=== PATIENT | female | born 1950 | race Asian ===

== ENCOUNTER → 2018-06-12 | Outpatient (CLI) | payer MEDICARE ==
[~2018-06-12] MED LIST: ACET325T51 PO; AMOX500T2 PO; ATEN50TA PO; CAND8TAB10 PO; CHOL1CRY2 MC; HYDR1POW19 MC; LEVO150T11 PO; LEVO750T46 PO; OMEP1CAP25 PO; POTA20TA82 PO; SPIR50TA5 PO
== END | disposition home or self-care (01) ==
LOC: RAH 14:46
PROVIDERS: ATTEND Orthopaedic Surgery
DX: M25.461 Effusion, right knee (principal); M17.11 Unilateral primary osteoarthritis, right knee
CPT/HCPCS: 73562

== ENCOUNTER → 2019-05-23 | Outpatient (CLI) | payer MEDICARE | END | disposition home or self-care (01) | LOC: SHCH 13:39 | PROVIDERS: ATTEND Internal Medicine Cardiovascular Disease | DX: I71.4 Abdominal aortic aneurysm, without rupture (principal); R94.31 Abnormal electrocardiogram [ECG] [EKG] | CPT/HCPCS: 93306 ==

== ENCOUNTER → 2019-06-18 | Outpatient (CLI) | payer MEDICARE | END | disposition home or self-care (01) | LOC: SHCH 09:04 | PROVIDERS: ATTEND Internal Medicine Cardiovascular Disease | DX: I70.0 Atherosclerosis of aorta (principal); I71.4 Abdominal aortic aneurysm, without rupture | CPT/HCPCS: 93978 ==

== ENCOUNTER → 2020-04-13 | Outpatient (CLI) | payer MEDICARE | END | disposition home or self-care (01) | LOC: OIH 08:10 | PROVIDERS: ATTEND Internal Medicine Critical Care Medicine | DX: Z01.818 Encounter for other preprocedural examination (principal); R10.31 Right lower quadrant pain; Z98.890 Other specified postprocedural states | CPT/HCPCS: 73502 ==

== ENCOUNTER 2020-05-26 11:44 | Emergency (ER) | payer MEDICARE ==
[2020-05-26 12:36] LABS: EOSINOPHILS % (AUTO) 1.5 % (0.0-8.0); HEMATOCRIT 35.2 % (36-48); LYMPHOCYTES % (AUTO) 28.6 % (21.0-51.0); MEAN CORPUSCULAR HEMOGLOBIN 27.4 pg (27.0-33.0); MEAN CORPUSCULAR HGB CONC 30.7 g/dL (32.0-36.0); MEAN CORPUSCULAR VOLUME 89.3 fL (79-99); MONOCYTES % (AUTO) 7.9 % (3.0-13.0); PLATELET COUNT (AUTO) 224 K/uL (130-400); RED BLOOD CELL COUNT(AUTO) 3.94 MIL/uL (4.00-5.50); RED CELL DISTRIBUTION WIDTH 15.2 % (11.0-15.5); WHITE BLOOD COUNT (AUTO) 3.9 K/uL (4.8-10.8)
[2020-05-26] MEDS ORDERED: CEFTRIAXONE SODIUM 1 GM ONE (12:45)
[2020-05-26] MEDS ORDERED: ACETAMINOPHEN-CODEINE 300/30MG TAB ONE (12:46)
[2020-05-26] MEDS ORDERED: AZITHROMYCIN 250 MG TABLET PO ONE (12:46)
[2020-05-26] MEDS ORDERED: SODIUM CHLORIDE 0.9% 50 ML IV ONE (12:47)
[2020-05-26 12:52] LABS: CREATININE 0.7 mg/dL (0.5-1.5); POTASSIUM 4.1 mmol/L (3.5-5.1)
[2020-05-26 12:56] LABS: ALBUMIN 2.9 g/dL (3.5-5.0); BILIRUBIN,TOTAL 0.3 mg/dL (0.2-1.0); TOTAL PROTEIN, SERUM 6.1 g/dL (6.0-8.3)
== END 2020-05-26 14:29 | disposition home or self-care (01) ==
LOC: EDH 11:44
DX: U07.1 COVID-19 (principal); J18.1 Lobar pneumonia, unspecified organism; E11.9 Type 2 diabetes mellitus without complications; I10 Essential (primary) hypertension; Z72.0 Tobacco use
CPT/HCPCS: 36415; 71045; 80053; 85025; 87426; 87804 ×2; 93005; 96365; 99285; J0696

== ENCOUNTER 2020-08-05 15:01 | Inpatient (IN) | payer MEDICARE ==
[~2020-08-05] VITALS: Ht 160 cm; Wt 50.0 kg
[~2020-08-05 15:01] MED LIST changes: -CHOL1CRY2 MC; +CHOL1CRY2 PO; +POTA-202 PO; -POTA20TA82 PO
[2020-08-05] MEDS ORDERED: ACETAMINOPHEN 325 MG TAB PO PRN ×2 (16:30)
[2020-08-05] MEDS ORDERED: MORPHINE 2 MG SYG IV PRN (16:30)
[2020-08-05] MEDS ORDERED: ONDANSETRON 4MG INJ IV PRN (16:30)
[2020-08-05] MEDS ORDERED: LACTULOSE 20 GM/30 ML UDCUP PO PRN (16:30)
[2020-08-05] MEDS: 0.9%NACL 1000ML 1,000 ML IV SCH (16:30)
[2020-08-05] MEDS ORDERED: ONDANSETRON 4MG INJ ONE (16:44)
[2020-08-05] MEDS ORDERED: MORPHINE 2 MG SYG ONE (16:44)
[2020-08-05 17:02] LABS: BASOPHILS % (AUTO) 0.3 % (0.0-5.0); EOSINOPHILS % (AUTO) 0.2 % (0.0-8.0); HEMATOCRIT 37.8 % (36-48); LYMPHOCYTES % (AUTO) 7.4 % (21.0-51.0); MEAN CORPUSCULAR HEMOGLOBIN 27.9 pg (27.0-33.0); MONOCYTES % (AUTO) 8.6 % (3.0-13.0); NEUTROPHILS % (AUTO) 82.9 % (40.0-77.0); PLATELET COUNT (AUTO) 250 K/uL (130-400); RED CELL DISTRIBUTION WIDTH 16.2 % (11.0-15.5); WHITE BLOOD COUNT (AUTO) 8.8 K/uL (4.8-10.8)
[2020-08-05 17:18] LABS: INR 1.01 (0.85-1.15)
[2020-08-05 17:30] LABS: CREATININE 0.9 mg/dL (0.5-1.5)
[2020-08-05 17:35] LABS: ALBUMIN 3.4 g/dL (3.5-5.0); BILIRUBIN,TOTAL 0.5 mg/dL (0.2-1.0); TOTAL PROTEIN, SERUM 6.4 g/dL (6.0-8.3)
[2020-08-05] MEDS ORDERED: MORPHINE 4 MG SYG ONE (20:28)
[2020-08-05 20:51] LABS: APPEARANCE,URINE Clear (CLEAR); BILIRUBIN,URINE Negative (NEGATIVE); COLOR,URINE Yellow (YELLOW); GLUCOSE, URINE (UA) Negative (NEGATIVE); KETONES,URINE Negative (NEGATIVE); LEUKOCYTE ESTERASE ,URINE Negative (NEGATIVE); NITRATE,URINE Negative (NEGATIVE); OCCULT BLOOD,URINE Trace (NEGATIVE); PROTEIN,URINE Negative (NEGATIVE); UROBILINOGEN,URINE 0.2 mg/dL (0.2-1.0)
[2020-08-05] MEDS: METOPROLOL TARTRATE 25 MG TAB PO SCH (21:00)
[2020-08-05] MEDS: FAMOTIDINE 20MG VIAL IV SCH (21:00)
[2020-08-05 21:08] LABS: BACTERIA,URINE None Seen /HPF (None Seen); SQUAMOUS EPITHELIAL CELL,UR Rare /HPF (0-2); WBC,URINE None Seen /HPF (0-1)
[2020-08-05] MEDS ORDERED: METOPROLOL TARTRATE 25 MG TAB ONE (21:29)
[2020-08-05] MEDS ORDERED: FAMOTIDINE 20MG VIAL IV ONE (21:30)
[2020-08-05 23:10] VITALS: BP 138/55
[2020-08-06] VITALS (25 sets, daily range): BP systolic 112–162; BP diastolic 54–82
[2020-08-06] MEDS: MORPHINE 4 MG SYG IV PRN ×2 (02:50→09:16)
[2020-08-06] MEDS: 0.9%NACL 1000ML 1,000 ML IV SCH ×4 (06:15→22:41)
[2020-08-06] MEDS: FAMOTIDINE 20MG VIAL IV SCH ×2 (09:21→20:15)
[2020-08-06] MEDS: METOPROLOL TARTRATE 25 MG TAB PO SCH ×2 (09:21→20:16)
[2020-08-06] MEDS ORDERED: CEFAZOLIN SODIUM 1 GM VIAL ONE (11:42)
[2020-08-06] MEDS ORDERED: LIDOCAINE HCL-MPF 1% 5ML AMP IJ ONE (11:49)
[2020-08-06] MEDS ORDERED: MIDAZOLAM HCL 1 MG/ML 2ML VIAL ONE (11:50)
[2020-08-06] MEDS ORDERED: PROPOFOL 10 MG/ML 20ML VIAL IV ONE (11:50)
[2020-08-06] MEDS ORDERED: FENTANYL CITRATE PF 50 MCG/1 ML 2ML VIAL ONE (11:50)
[2020-08-06] MEDS ORDERED: ROCURONIUM 10MG/1ML SYR 10 MG/ML ML ONE (11:50)
[2020-08-06] MEDS ORDERED: EPHEDRINE SULFATE 50 MG/ML AMPULE ONE (12:13)
[2020-08-06] MEDS ORDERED: ROPIVACAINE 0.5% 5MG/ML 30ML IJ ONE (13:14)
[2020-08-06] MEDS ORDERED: HYDROCODONE/ACETAMINOPHEN 5/325 MG TAB PO PRN (13:30)
[2020-08-06] MEDS ORDERED: FERROUS FUMARATE 324 MG TABLET PO PRN (13:30)
[2020-08-06] MEDS ORDERED: DIPHENHYDRAMINE HCL 25 MG CAPSULE PO PRN (13:30)
[2020-08-06] MEDS: ACETAMINOPHEN 500 MG TABLET PO SCH ×2 (13:30→21:30)
[2020-08-06] MEDS ORDERED: POTASSIUM CHLORIDE 20MEQ/100ML 100 ML IV PRN (13:30)
[2020-08-06] MEDS ORDERED: KCL 20 MEQ ERTAB PO PRN (13:30)
[2020-08-06] MEDS ORDERED: CALCIUM CARB 500MG PO PRN (13:30)
[2020-08-06] MEDS ORDERED: POTASSIUM CHLORIDE 10% ELIXIR 20 MEQ/15 ML UDCUP PO PRN (13:30)
[2020-08-06] MEDS ORDERED: DiphenhydrAMINE HCL 50 MG/ML VIAL IVP PRN (13:30)
[2020-08-06] MEDS: CEFAZOLIN SODIUM 1 GM VIAL IVP SCH (20:15)
[2020-08-07] VITALS: BP 128/65
[2020-08-07] MEDS: CEFAZOLIN SODIUM 1 GM VIAL IVP SCH (03:53)
[2020-08-07] MEDS: 0.9%NACL 1000ML 1,000 ML IV SCH ×3 (03:54→11:24)
[2020-08-07 04:00] VITALS: BP 142/79
[2020-08-07] MEDS: ACETAMINOPHEN 500 MG TABLET PO SCH ×2 (04:58→15:41)
[2020-08-07 05:10] LABS: HEMATOCRIT 29.8 % (36-48); MEAN CORPUSCULAR HEMOGLOBIN 28.6 pg (27.0-33.0); MEAN CORPUSCULAR HGB CONC 32.2 g/dL (32.0-36.0); MEAN CORPUSCULAR VOLUME 88.7 fL (79-99); RED BLOOD CELL COUNT(AUTO) 3.36 MIL/uL (4.00-5.50); RED CELL DISTRIBUTION WIDTH 15.7 % (11.0-15.5); WHITE BLOOD COUNT (AUTO) 9.2 K/uL (4.8-10.8)
[2020-08-07 05:30] LABS: CREATININE 0.6 mg/dL (0.5-1.5); POTASSIUM 3.3 mmol/L (3.5-5.1)
[2020-08-07] MEDS ORDERED: KCL 20 MEQ ERTAB PO SCH (07:30)
[2020-08-07 08:00] VITALS: BP 135/73
[2020-08-07] MEDS ORDERED: LOSARTAN 50 MG TABLET PO SCH (09:00)
[2020-08-07] MEDS ORDERED: OMEPRAZOLE PO SCH (09:00)
[2020-08-07] MEDS ORDERED: VIT D3 PO SCH (09:00)
[2020-08-07] MEDS ORDERED: NON-FORMULARY MEDICATION 1 EACH (Spironolactone 50 MG) PO SCH (09:00)
[2020-08-07] MEDS ORDERED: LEVOTHYROXINE 150 MCG TABLET PO SCH (09:00)
[2020-08-07] MEDS ORDERED: APIXABAN 2.5 MG TABLET PO SCH (09:00)
[2020-08-07] MEDS ORDERED: POLYETHYLENE GLYCOL 3350 17 GM POWD.PACK PO SCH (09:00)
[2020-08-07] MEDS ORDERED: SODIUM BICARBONATE PO SCH (09:00)
[2020-08-07] MEDS: FAMOTIDINE 20MG VIAL IV SCH (09:03)
[2020-08-07] MEDS: METOPROLOL TARTRATE 25 MG TAB PO SCH (09:03)
[2020-08-07 11:00] VITALS: BP 126/76
[2020-08-07] MEDS ORDERED: PSYLLIUM SEED 1 EACH PACKET PO SCH (12:00)
[2020-08-07] MEDS ORDERED: SPIRONOLACTONE 25 MG TAB PO SCH (21:00)
[2020-08-08] MEDS ORDERED: BISACODYL 5 MG TABLET.DR PO PRN (13:30)
[2020-08-09] MEDS ORDERED: BISACODYL 10 MG SUPP.RECT RC PRN (13:30)
[2020-08-10] MEDS ORDERED: ROCURONIUM 10MG/1ML SYR 10 MG/ML ML ONE (15:09)
== END 2020-08-07 16:50 | disposition home or self-care (01) | DRG 522 ==
LOC: EDH 15:01 → EDHIP 16:16 → 3BH 23:04
PROVIDERS: ADMIT Internal Medicine; ATTEND Internal Medicine
PROC: 0SRS0JA Replacement of Left Hip Joint, Femoral Surface with Synthetic Substitute, Uncemented, Open Approach (ICD-10-PCS; principal; 2020-08-06 11:55)
DX: S72.012A Unspecified intracapsular fracture of left femur, initial encounter for closed fracture (principal); Q61.3 Polycystic kidney, unspecified; I10 Essential (primary) hypertension; W01.0XXA Fall on same level from slipping, tripping and stumbling without subsequent striking against object, initial encounter; E78.5 Hyperlipidemia, unspecified; E89.0 Postprocedural hypothyroidism; K57.90 Diverticulosis of intestine, part unspecified, without perforation or abscess without bleeding; Z20.822 Contact with and (suspected) exposure to COVID-19; K76.89 Other specified diseases of liver; Y92.002 Bathroom of unspecified non-institutional (private) residence as the place of occurrence of the external cause; Y93.89 Activity, other specified; Y99.8 Other external cause status; Z80.8 Family history of malignant neoplasm of other organs or systems; Z82.49 Family history of ischemic heart disease and other diseases of the circulatory system; Z79.899 Other long term (current) drug therapy; Z88.8 Allergy status to other drugs, medicaments and biological substances
CPT/HCPCS: 36415; 71045; 73502; 73503; 80048; 80053; 81001; 82550; 84484; 85025; 85027; 85610; 85730; 86850; 86900; 86901; 87426; 88305; 88311; 93005; 97039; C1776; G0378; J0690; J2250; J2270; J2405; J2704; J2795; J3010; J3490; J7030; U0003

== ENCOUNTER 2021-06-12 12:04 | Emergency (ER) | payer MEDICARE ==
[~2021-06-12] VITALS: Ht 167.6 cm; Wt 54.9 kg
[~2021-06-12 12:04] MED LIST changes: -ACET325T51 PO; -AMOX500T2 PO; -HYDR1POW19 MC
[2021-06-12 12:06] VITALS: BP 129/68
[2021-06-12] MEDS ORDERED: ACETAMINOPHEN 500 MG TABLET PO SCH (12:30)
[2021-06-12 12:33] LABS: BASOPHILS % (AUTO) 0.6 % (0.0-5.0); EOSINOPHILS % (AUTO) 2.2 % (0.0-8.0); HEMATOCRIT 45.9 % (36-48); LYMPHOCYTES % (AUTO) 27.2 % (21.0-51.0); MEAN CORPUSCULAR HEMOGLOBIN 29.5 pg (27.0-33.0); MEAN CORPUSCULAR HGB CONC 30.7 g/dL (32.0-36.0); MONOCYTES % (AUTO) 8.6 % (3.0-13.0); NEUTROPHILS % (AUTO) 60.9 % (40.0-77.0); PLATELET COUNT (AUTO) 323 K/uL (130-400); RED BLOOD CELL COUNT(AUTO) 4.78 MIL/uL (4.00-5.50); RED CELL DISTRIBUTION WIDTH 13.5 % (11.0-15.5); WHITE BLOOD COUNT (AUTO) 6.3 K/uL (4.8-10.8)
[2021-06-12 12:41] LABS: CREATININE 0.8 mg/dL (0.5-1.5); POTASSIUM 4.3 mmol/L (3.5-5.1)
[2021-06-12 12:46] LABS: ALBUMIN 3.9 g/dL (3.5-5.0); BILIRUBIN,TOTAL 0.3 mg/dL (0.2-1.0); TOTAL PROTEIN, SERUM 7.4 g/dL (6.0-8.3)
[2021-06-12 13:28] LABS: APPEARANCE,URINE Clear (CLEAR); BILIRUBIN,URINE Negative (NEGATIVE); COLOR,URINE Yellow (YELLOW); GLUCOSE, URINE (UA) Negative (NEGATIVE); KETONES,URINE Negative (NEGATIVE); LEUKOCYTE ESTERASE ,URINE Moderate (NEGATIVE); NITRATE,URINE Negative (NEGATIVE); OCCULT BLOOD,URINE Moderate (NEGATIVE); PH,URINE 5.5 (5.0-8.0); PROTEIN,URINE Trace mg/dL (NEGATIVE); UROBILINOGEN,URINE 0.2 mg/dL (0.2-1.0)
[2021-06-12 13:44] LABS: BACTERIA,URINE Rare /HPF (None Seen); MUCUS,URINE Rare LPF (None Seen); SQUAMOUS EPITHELIAL CELL,UR Rare /HPF (0-2)
[2021-06-12] MEDS ORDERED: PHEN-847 PO (13:51)
[2021-06-12] MEDS ORDERED: CEPH500B PO (13:51)
[2021-06-12] MEDS ORDERED: CEFTRIAXONE 1G VIAL IM ONE (14:00)
[2021-06-12] MEDS ORDERED: LIDOCAINE HCL-MPF 1% 2ML VIAL ONE (14:11)
== END 2021-06-12 14:17 | disposition home or self-care (01) ==
LOC: EDH 12:04
DX: S00.83XA Contusion of other part of head, initial encounter (principal); S70.01XA Contusion of right hip, initial encounter; S20.211A Contusion of right front wall of thorax, initial encounter; N39.0 Urinary tract infection, site not specified; I10 Essential (primary) hypertension; J44.9 Chronic obstructive pulmonary disease, unspecified; Z79.899 Other long term (current) drug therapy; Z90.49 Acquired absence of other specified parts of digestive tract; W01.0XXA Fall on same level from slipping, tripping and stumbling without subsequent striking against object, initial encounter; Y93.89 Activity, other specified; Y92.000 Kitchen of unspecified non-institutional (private) residence as the place of occurrence of the external cause; Y99.8 Other external cause status
CPT/HCPCS: 36415; 70450; 71250; 72125; 74176; 80053; 81001; 84484; 85025; 86140; 87088; 93005; 96372; 99285; J0696; J3490

== ENCOUNTER 2021-07-08 12:57 | Emergency (ER) | payer MEDICARE ==
[~2021-07-08] VITALS: Ht 170.2 cm; Wt 54.9 kg
[~2021-07-08 12:57] MED LIST changes: +CEPH500B PO; +PHEN-847 PO
[2021-07-08] MEDS ORDERED: ACETAMINOPHEN 500 MG TABLET PO ONE (13:30)
[2021-07-08] MEDS ORDERED: NAPR-1196 PO (14:05)
[2021-07-08 14:06] VITALS: BP 141/76
== END 2021-07-08 14:30 | disposition home or self-care (01) ==
LOC: EDH 12:57
DX: S42.214A Unspecified nondisplaced fracture of surgical neck of right humerus, initial encounter for closed fracture (principal); I10 Essential (primary) hypertension; Z79.899 Other long term (current) drug therapy; Z90.49 Acquired absence of other specified parts of digestive tract; W18.39XA Other fall on same level, initial encounter; Y93.89 Activity, other specified; Y92.89 Other specified places as the place of occurrence of the external cause; Y99.8 Other external cause status
CPT/HCPCS: 29105; 70450; 72125; 73030

== ENCOUNTER 2022-06-01 09:45 | Emergency (ER) | payer MEDICARE ==
[~2022-06-01] VITALS: Ht 170.2 cm; Wt 45.4 kg
[~2022-06-01 09:45] MED LIST changes: +LEVO750T39 PO; -LEVO750T46 PO; +NAPR-1196 PO
[2022-06-01] MEDS ORDERED: LACTATED RINGERS 1000ML 1,000 ML IV ONE (10:00)
[2022-06-01] MEDS ORDERED: ONDANSETRON 4MG INJ IVP ONE (10:00)
[2022-06-01 10:16] LABS: BASOPHILS % (AUTO) 0.4 % (0.0-5.0); EOSINOPHILS % (AUTO) 0.9 % (0.0-8.0); HEMATOCRIT 35.8 % (36-48); LYMPHOCYTES % (AUTO) 11.7 % (21.0-51.0); MEAN CORPUSCULAR HEMOGLOBIN 30.2 pg (27.0-33.0); MEAN CORPUSCULAR HGB CONC 32.7 g/dL (32.0-36.0); MEAN CORPUSCULAR VOLUME 92.5 fL (79-99); MONOCYTES % (AUTO) 15.1 % (3.0-13.0); NEUTROPHILS % (AUTO) 71.5 % (40.0-77.0); PLATELET COUNT (AUTO) 203 K/uL (130-400); RED BLOOD CELL COUNT(AUTO) 3.87 MIL/uL (4.00-5.50); RED CELL DISTRIBUTION WIDTH 13.5 % (11.0-15.5); WHITE BLOOD COUNT (AUTO) 5.3 K/uL (4.8-10.8)
[2022-06-01 10:28] LABS: CREATININE 1.3 mg/dL (0.5-1.5)
[2022-06-01 10:32] LABS: ALBUMIN 3.6 g/dL (3.5-5.0); TOTAL PROTEIN, SERUM 6.6 g/dL (6.0-8.3)
[2022-06-01 12:38] LABS: APPEARANCE,URINE CLEAR (CLEAR); BILIRUBIN,URINE NEGATIVE (NEGATIVE); COLOR,URINE YELLOW (YELLOW); GLUCOSE, URINE (UA) NEGATIVE (NEGATIVE); KETONES,URINE 5 mg/dL (NEGATIVE); LEUKOCYTE ESTERASE ,URINE 25 Leu/uL (NEGATIVE); NITRATE,URINE 2+ (NEGATIVE); OCCULT BLOOD,URINE NEGATIVE (NEGATIVE); PH,URINE 5.5 (5.0-8.0); PROTEIN,URINE 10 mg/dL (NEGATIVE); UROBILINOGEN,URINE 0.2 mg/dL (0.2-1.0)
[2022-06-01 12:50] LABS: BACTERIA,URINE MANY /HPF (None Seen); HYALINE CASTS, URINE 26-50 /LPF (0-1 /LPF); MUCUS,URINE MANY LPF (None Seen); RBC,URINE 0-1 /HPF (0-1)
[2022-06-01] MEDS ORDERED: SULF1TAB42 PO (13:22)
[2022-06-01] MEDS ORDERED: ONDA4TAB10 PO (13:22)
[2022-06-01] MEDS ORDERED: LOPE2CAP PO (13:22)
[2022-06-01] MEDS ORDERED: CEFTRIAXONE 1G VIAL IVP ONE (13:30)
[2022-06-01 14:00] VITALS: BP 135/76
== END 2022-06-01 14:00 | disposition home or self-care (01) ==
LOC: EDH 09:45
DX: N39.0 Urinary tract infection, site not specified (principal); E86.0 Dehydration; R19.7 Diarrhea, unspecified; I10 Essential (primary) hypertension; Z20.822 Contact with and (suspected) exposure to COVID-19; Z98.890 Other specified postprocedural states; Z79.899 Other long term (current) drug therapy; Z90.49 Acquired absence of other specified parts of digestive tract
CPT/HCPCS: 99284; 84484; 80053; 83690; 85025; 87077; 87088; 87186; 81001; 36415; 87635; 96374; 96361; 96375; C9803; J7120; J0696; J2405

== ENCOUNTER 2022-08-04 06:29 | Emergency (ER) | payer MEDICARE ==
[~2022-08-04] VITALS: Ht 170.2 cm; Wt 46.3 kg
[~2022-08-04 06:29] MED LIST changes: -ATEN50TA PO; -CAND8TAB10 PO; +CELE-84 PO; -CEPH500B PO; -CHOL1CRY2 PO; +CHOL500045 PO; +FERR-72 PO; +HYOS-28 PO; -LEVO750T39 PO; -NAPR-1196 PO; -OMEP1CAP25 PO; -PHEN-847 PO; +SPIR25TA PO; -SPIR50TA5 PO; +TRAZ-185 PO
[2022-08-04] MEDS ORDERED: TRAM50TA4 PO (09:09)
[2022-08-04 09:13] VITALS: BP 140/71
== END 2022-08-04 09:27 | disposition home or self-care (01) ==
LOC: EDH 06:29
DX: M25.511 Pain in right shoulder (principal); M25.562 Pain in left knee; M25.552 Pain in left hip; E03.9 Hypothyroidism, unspecified; I10 Essential (primary) hypertension; Z85.528 Personal history of other malignant neoplasm of kidney; Z79.899 Other long term (current) drug therapy; Z96.643 Presence of artificial hip joint, bilateral; Z98.890 Other specified postprocedural states; Z88.8 Allergy status to other drugs, medicaments and biological substances; W18.39XA Other fall on same level, initial encounter; Y93.89 Activity, other specified; Y92.89 Other specified places as the place of occurrence of the external cause; Y99.8 Other external cause status
CPT/HCPCS: 73030; 73502; 73562

== ENCOUNTER 2023-04-12 10:51 | Emergency (ER) | payer MEDICARE ==
[~2023-04-12] VITALS: Ht 170.2 cm; Wt 47.2 kg
[~2023-04-12 10:51] MED LIST changes: +CELE-125 PO; -CELE-84 PO; +TRAM50TA4 PO
[2023-04-12 10:56] VITALS: BP 143/60; PULSE 18; RESP 18
[2023-04-12] MEDS ORDERED: ACETAMINOPHEN WITH CODEINE 1 TAB TAB PO ONE (13:00)
[2023-04-12] MEDS ORDERED: ACET-2893 PO (14:54)
[2023-04-17] MEDS ORDERED: CEFTRIAXONE 1G VIAL IVPB SCH (17:30)
[2023-04-17] MEDS ORDERED: 0.9%NACL 1000ML 1,000 ML IV ONE (17:30)
== END 2023-04-12 15:39 | disposition home or self-care (01) ==
LOC: EDH 10:51
DX: S46.911A Strain of unspecified muscle, fascia and tendon at shoulder and upper arm level, right arm, initial encounter (principal); E03.9 Hypothyroidism, unspecified; I10 Essential (primary) hypertension; Z79.890 Hormone replacement therapy; Z79.899 Other long term (current) drug therapy; Z85.528 Personal history of other malignant neoplasm of kidney; W01.0XXA Fall on same level from slipping, tripping and stumbling without subsequent striking against object, initial encounter; Y93.89 Activity, other specified; Y92.89 Other specified places as the place of occurrence of the external cause; Y99.8 Other external cause status
CPT/HCPCS: 73030; 73562; 73630

== ENCOUNTER 2023-06-04 10:08 | Emergency (ER) | payer MEDICARE ==
[~2023-06-04] VITALS: Ht 167.6 cm; Wt 54.4 kg
[~2023-06-04 10:08] MED LIST changes: +ACET-2893 PO; +AMLO-257 PO
[2023-06-04] MEDS ORDERED: FAMOTIDINE 20MG VIAL IV ONE (11:00)
[2023-06-04] MEDS ORDERED: 0.9%NACL 1000ML 1,000 ML IV ONE (11:00)
[2023-06-04] MEDS ORDERED: ONDANSETRON 4MG INJ IVP ONE ×2 (11:00→15:00)
[2023-06-04 11:04] LABS: BASOPHILS # (AUTO) 0.02 K/uL (0.00-0.20); BASOPHILS % (AUTO) 0.3 % (0.0-5.0); EOSINOPHILS # (AUTO) 0.13 K/uL (0.00-0.70); EOSINOPHILS % (AUTO) 1.6 % (0.0-8.0); HEMATOCRIT 38.4 % (36-48); IMMATURE GRANULOCYTE ABSOLUTE 0.02 K/uL (0-1); LYMPHOCYTES # (AUTO) 0.4 K/uL (1.0-4.8); LYMPHOCYTES % (AUTO) 4.6 % (21.0-51.0); MEAN CORPUSCULAR HEMOGLOBIN 29.7 pg (27.0-33.0); MEAN CORPUSCULAR VOLUME 92.8 fL (79-99); MONOCYTES # (AUTO) 0.8 K/uL (0.1-1.0); MONOCYTES % (AUTO) 9.4 % (3.0-13.0); NEUTROPHILS # (AUTO) 6.7 K/uL (1.8-7.7); NEUTROPHILS % (AUTO) 83.8 % (40.0-77.0); PLATELET COUNT (AUTO) 217 K/uL (130-400); RED BLOOD CELL COUNT(AUTO) 4.14 MIL/uL (4.00-5.50)
[2023-06-04 11:13] LABS: CREATININE 0.8 mg/dL (0.5-1.5); POTASSIUM 3.2 mmol/L (3.5-5.1)
[2023-06-04 11:16] LABS: ALBUMIN 3.1 g/dL (3.5-5.0); BILIRUBIN,TOTAL 0.5 mg/dL (0.2-1.0); MAGNESIUM 1.1 mg/dL (1.80-2.40); TOTAL PROTEIN, SERUM 6.1 g/dL (6.0-8.3)
[2023-06-04 12:36] LABS: APPEARANCE,URINE CLEAR (CLEAR); BILIRUBIN,URINE NEGATIVE (NEGATIVE); COLOR,URINE LIGHT-YELLOW (YELLOW); GLUCOSE, URINE (UA) NEGATIVE (NEGATIVE); KETONES,URINE NEGATIVE (NEGATIVE); LEUKOCYTE ESTERASE ,URINE NEGATIVE Leu/uL (NEGATIVE); NITRATE,URINE NEGATIVE (NEGATIVE); OCCULT BLOOD,URINE SMALL (NEGATIVE); PROTEIN,URINE NEGATIVE (NEGATIVE); UROBILINOGEN,URINE 0.2 mg/dL (0.2-1.0)
[2023-06-04 12:44] LABS: ADD UA MICROSCOPIC NO
[2023-06-04] MEDS ORDERED: POTASSIUM BICARB/CIT AC 25 MEQ TABLET.EFF PO ONE (13:00)
[2023-06-04] MEDS ORDERED: ONDA4TAB10 PO (13:29)
[2023-06-04 14:44] VITALS: BP 158/77; PULSE 71; RESP 17; O2SAT 96
== END 2023-06-04 15:03 | disposition home or self-care (01) ==
LOC: EDH 10:08
DX: K52.9 Noninfective gastroenteritis and colitis, unspecified (principal); Z90.49 Acquired absence of other specified parts of digestive tract; Z79.899 Other long term (current) drug therapy; Z98.890 Other specified postprocedural states; Z88.8 Allergy status to other drugs, medicaments and biological substances
CPT/HCPCS: 99285; 96374; 71045; 96361; 96375; 82150; 83735; 84484; 80053; 83690; 85025; 81003; 36415; 96376; 93005; J3490; J7030; J2405 ×2

== ENCOUNTER 2023-07-05 15:25 | Emergency (ER) | payer MEDICARE ==
[~2023-07-05] VITALS: Ht 170.2 cm; Wt 47.2 kg
[~2023-07-05 15:25] MED LIST changes: -ACET-2893 PO; -CELE-125 PO; +LEVO-70 PO; +MAGN400T53 PO; +ONDA4TAB10 PO; -SPIR25TA PO; -TRAM50TA4 PO
[2023-07-05 19:23] LABS: BASOPHILS # (AUTO) 0.04 K/uL (0.00-0.20); BASOPHILS % (AUTO) 0.4 % (0.0-5.0); EOSINOPHILS # (AUTO) 0.13 K/uL (0.00-0.70); EOSINOPHILS % (AUTO) 1.2 % (0.0-8.0); HEMATOCRIT 39.4 % (36-48); IMMATURE GRANULOCYTE ABSOLUTE 0.04 K/uL (0-1); LYMPHOCYTES # (AUTO) 1.4 K/uL (1.0-4.8); LYMPHOCYTES % (AUTO) 13.4 % (21.0-51.0); MEAN CORPUSCULAR HGB CONC 33.2 g/dL (32.0-36.0); MEAN CORPUSCULAR VOLUME 90.4 fL (79-99); MONOCYTES # (AUTO) 0.9 K/uL (0.1-1.0); MONOCYTES % (AUTO) 8.2 % (3.0-13.0); NEUTROPHILS % (AUTO) 76.4 % (40.0-77.0); PLATELET COUNT (AUTO) 317 K/uL (130-400); RED BLOOD CELL COUNT(AUTO) 4.36 MIL/uL (4.00-5.50); RED CELL DISTRIBUTION WIDTH 14.3 % (11.0-15.5); WHITE BLOOD COUNT (AUTO) 10.4 K/uL (4.8-10.8)
[2023-07-05 19:30] LABS: POTASSIUM 3.9 mmol/L (3.5-5.1)
[2023-07-05 19:36] LABS: ALBUMIN 3.5 g/dL (3.5-5.0); BILIRUBIN,TOTAL 0.4 mg/dL (0.2-1.0); TOTAL PROTEIN, SERUM 6.7 g/dL (6.0-8.3)
[2023-07-05] MEDS: DEXAMETHASONE SOD PHOSPHATE 4 MG/ML 1ML VIAL IVP ONE (19:49)
[2023-07-05] MEDS: KETOROLAC 30MG VIAL (30MG/ML) IVP ONE (19:49)
[2023-07-05] MEDS: 0.9%NACL 1000ML 1,000 ML IV ONE (19:54)
[2023-07-05] MEDS: MAGNESIUM 2GM PREMIX 50ML 50 ML IV STA (20:32)
[2023-07-05 22:03] VITALS: BP 166/84; PULSE 69; RESP 17; O2SAT 98
== END 2023-07-05 22:05 | disposition home or self-care (01) ==
LOC: EDH 15:25
DX: E83.42 Hypomagnesemia (principal); E86.0 Dehydration; R63.0 Anorexia; I10 Essential (primary) hypertension; Z79.899 Other long term (current) drug therapy; Z98.890 Other specified postprocedural states; Z88.8 Allergy status to other drugs, medicaments and biological substances
CPT/HCPCS: 99284; 96365; 96375; 96361; 83735; 80053; 85025; 36415; J1100; J3475; J7030; J1885

== ENCOUNTER 2024-05-21 12:00 | Emergency (ER) | payer MEDICARE ==
[~2024-05-21] VITALS: Ht 170.2 cm; Wt 54.4 kg
[~2024-05-21 12:00] MED LIST changes: +ONDA-243 PO; -ONDA4TAB10 PO
--- NOTE | 2024-05-21 12:09 | ERN ---
ED Note History of Present Illness Stated Complaint: UTI Chief Complaint: Blood in Urine: Time Seen by MD: 12:03 Dictation: PATIENT IS A 73-YEAR-OLD FEMALE HERE WITH HER WITH COMPLAINTS OF HEMATURIA WITH LEFT FLANK PAIN ONSET OFF AND ON FOR THE LAST SEVERAL DAYS. NO FEVER NO CHILLS NO NAUSEA VOMITING. SHE STATES SHE HAS A HISTORY OF POLYCYSTIC KIDNEY DISEASE, AND HAS HAD RENAL SEE A X3. SHE CURRENTLY DOES NOT HAVE A NEPHROLOGISTS HOWEVER WOULD LIKE TO BE REFERRED TO ONE. Allergies: Coded Allergies: pregabalin (Unverified Allergy, Severe, 04/17/23) severe itching all over body atorvastatin (Verified Allergy, Unknown, 07/10/16) Home Meds Active Scripts Phenazopyridine HCl (Pyridium) 200 Mg Tab, 200 MG PO TIDPC for 3 Days, #9 TAB TAKE WITH FOOD TO PREVENT STOMACH UPSET. Prov:RUPERT FONSECA NP 05/21/24 Amoxicillin/Potassium Clav (Amox Tr-K Clv 875-125 mg Tab) 875 Mg-125 Mg Tablet, 1 EACH PO BID for 7 Days, #14 TAB 0 Refills Prov:RUPERT FONSECA NP 05/21/24 Diphenoxylate HCl/Atropine (Lomotil Tablet) 2.5 Mg-0.025 Mg Tablet, 1 TAB PO QID for 5 Days, #20 TAB 0 Refills Prov:RUPERT FONSECA NP 05/21/24 Potassium Chloride (Potassium Chloride) 20 Meq Tab.er.prt, 20 MEQ PO DAILY for 3 Days, #3 MEQ Prov:SHAMIKA HERNANDEZ NP 06/23/23 Magnesium Oxide (Magnesium Oxide) 400 Mg Tablet, 400 MG PO DAILY for 3 Days, #3 TAB Prov:SHAMIKA HERNANDEZ NP 06/23/23 Levofloxacin (Levofloxacin) 500 Mg Tablet, 500 MG PO DAILY for 5 Days, #5 TAB Prov:SHAMIKA HERNANDEZ NP 06/23/23 Ondansetron (Ondansetron Odt) 4 Mg Tab.rapdis, 4 MG PO Q4H PRN for NAUSEA, #20 TAB Prov:ROSS CLEANINGP 06/04/23 Amlodipine Besylate (Amlodipine Besylate) 5 Mg Tablet, 5 MG PO DAILY, #30 TAB 0 Refills Prov:ELISE MONTEIRO 04/19/23 Reported Medications Ferrous Sulfate (Ferrous Sulfate) 325 Mg Tablet, 325 MG PO DAILY, TAB 06/18/22 Hyoscyamine Sulfate (Hyoscyamine Sulfate) 0.125 Mg Tablet, 0.125 MG PO Q8H for DIARRHEA, TAB 06/18/22 Cholecalciferol (Vitamin D3) (Vitamin D3) 125 Mcg Tablet, 125 MCG PO DAILY, TAB 06/18/22 Trazodone HCl (Trazodone HCl) 50 Mg Tablet, 50 MG PO HS, TAB 06/18/22 Levothyroxine Sodium (Levothyroxine Sodium) 150 Mcg Tablet, 150 MCG PO DAILY, TAB 07/10/16 Past Medical History Past Medical History: Hypertension, Other Additional Past Medical Hx: GENETIC KIDNEY DISEASE Surgical History: Other Surgical History Other: SHOULDER REPLACEMENT, KNEE PSYCH History: no pertinent psych hx Family History: Negative Social History: Negative, Lives with family History: Not Applicable RN Note Reviewed/Agreed w/PFSH: Yes Review of System Dictation CONSTITUTIONAL: NEGATIVE EXCEPT FOR HPI HEAD/FACE: NEGATIVE EXCEPT FOR HPI EENT: NEGATIVE EXCEPT FOR HPI RESPIRATORY: NEGATIVE EXCEPT FOR HPI GASTROINTESTINAL/ABDOMINAL: NEGATIVE EXCEPT FOR HPI LEFT FLANK PAIN GENITOURINARY: NEGATIVE EXCEPT FOR HPI HEMATURIA MUSCULOSKELETAL: NEGATIVE EXCEPT FOR HPI INTEGUMENTARY: NEGATIVE EXCEPT FOR HPI NEUROLOGICAL/PSYCH: NEGATIVE EXCEPT FOR HPI HEMATOLOGIC/LYMPHATIC: NEGATIVE EXCEPT FOR HPI ALL SYSTEMS NEGATIVE, EXCEPT NOTED ABOVE. 13 POINT REVIEW OF SYSTEMS ASSESSED AND ALL NEGATIVE EXCEPT FOR ABOVE. Initial Vital Sign VS Vital Signs Date Time Temp Pulse Resp B/P (MAP) Pulse Ox O2 Delivery O2 Flow Rate FiO2 05/21/24 12:01 98.4 82 16 159/98 98 0 05/21/24 12:01 Room Air* 21 Physical Exam Dictation VITAL SIGNS REVIEWED GENERAL APPEARANCE: ALERT, ORIENTED X 3, MILD ACUTE DISTRESS, WELL DEVELOPED, NOURISHED. HEAD AND FACE: NON-TRAUMATIC. EYES: PERRL, PINK CONJUNCTIVAS, EYELID NO TRAUMA, ANTERIOR CHAMBER WITH ARCUS SENILIS. EARS: PINNAS INTACT AND NO SIGNS OF TRAUMA OR ERYTHEMA EAR CANALS CLEAR AND NO DISCHARGE TM NO ERYTHEMA NOSE: NO DISCHARGE, NO BLEEDING. OROPHARYNX: MOUTH NORMAL, TONGUE PINK, PHARYNX CLEAR,NO ERYTHEMA, TONSILS NO EXUDATES, NO ABSCESSES NOTED, MUCOUS MEMBRANE MOIST NECK: SUPPLE, NON-TENDER, NO THYROMEGALY, NO MASSES, NO JVD, NO BRUITS BREAST:DEFERRED CHEST:NO TENDERNESS, NO CREPITUS, NO PARADOXICAL MOVEMENT, NO RETRACTIONS LUNGS:CLEAR, WELL-VENTILATED, SYMMETRIC, NO RALES, NO WHEEZING, NO RHONCHI, NO STRIDOR, GOOD BREATH SOUNDS BILATERALLY HEART: REGULAR RATE, REGULAR RHYTHM, NO MURMUR, NO GALLOPS VASCULAR: NO PERIPHERAL EDEMA, ABDOMEN: SOFT, POSITIVE BOWEL SOUNDS, NONDISTENDED, NO GUARDING, NONTENDER, NO REBOUND, NO MASSES NO HEPATOMEGALY, NO SPLENOMEGALY, NO COLEMAN'S SIGN, NO HERNIAS. RECTAL: DEFERRED GENITAL: DEFERRED NEUROLOGICAL: NORMAL SPEECH, MOTOR FUNCTION INTACT, SENSORY FUNCTION INTACT MUSCULOSKELETAL: NECK NONTENDER, FULL RANGE OF MOTION, BACK NONTENDER, FULL RANGE OF MOTION, EXTREMITIES: NONTENDER, FULL RANGE OF MOTION SKIN: COLOR PINK, DRY, NO TURGOR, NO RASH, NO LACERATIONS, NO ABRASIONS, NO CONTUSIONS. LYMPHATIC: DEFERRED Results (Laboratory/Radiology) Laboratory/Radiology Laboratory Tests Test 05/21/24 12:35 05/21/24 12:42 White Blood Count 6.5 K/uL (4.8-10.8) Red Blood Count 4.38 MIL/uL (4.00-5.50) Hemoglobin 13.4 g/dL (12.0-16.0) Hematocrit 42.0 % (36-48) Mean Corpuscular Volume 95.9 fL (79-99) Mean Corpuscular Hemoglobin 30.6 pg (27.0-33.0) Mean Corpuscular Hemoglobin Concent 31.9 g/dL (32.0-36.0) L Red Cell Distribution Width 14.3 % (11.0-15.5) Platelet Count 322 K/uL (130-400) Mean Platelet Volume 9.2 fL (7.5-10.5) Immature Granulocyte % (Auto) 0.6 % (0-1) Neutrophils (%) (Auto) 56.7 % (40.0-77.0) Lymphocytes (%) (Auto) 32.3 % (21.0-51.0) Monocytes (%) (Auto) 8.4 % (3.0-13.0) Eosinophils (%) (Auto) 1.4 % (0.0-8.0) Basophils (%) (Auto) 0.6 % (0.0-5.0) Neutrophils # (Auto) 3.7 K/uL (1.8-7.7) Lymphocytes # (Auto) 2.1 K/uL (1.0-4.8) Monocytes # (Auto) 0.6 K/uL (0.1-1.0) Eosinophils # (Auto) 0.09 K/uL (0.00-0.70) Basophils # (Auto) 0.04 K/uL (0.00-0.20) Absolute Immature Granulocyte (auto 0.04 K/uL (0-1) Nucleated Red Blood Cells 0.0 % (0.0-0.19) Prothrombin Time 10.1 SEC (9.6-11.6) Prothromb Time International Ratio <= 0.93 (0.85-1.15) Activated Partial Thromboplast Time 23.6 SEC (26.3-35.5) L Sodium Level 143 mmol/L (136-145) Potassium Level 3.4 mmol/L (3.5-5.1) L Chloride Level 104 mmol/L (101-111) Carbon Dioxide Level 34 mmol/L (21-32) H Blood Urea Nitrogen 20 mg/dL (7-18) H Creatinine 0.9 mg/dL (0.5-1.0) Glomerular Filtration Rate Calc 68 mL/min (>90) Random Glucose 75 mg/dL (70-105) Total Calcium 9.7 mg/dL (8.5-10.1) Urine Color LIGHT-YELLOW (YELLOW) Urine Appearance HAZY (CLEAR) Urine pH 6.5 (5.0-8.0) Urine Specific [place] 1.015 (1.001-1.031) Urine Protein NEGATIVE mg/dL (NEGATIVE) Urine Glucose (UA) NEGATIVE mg/dL (NEGATIVE) Urine Ketones NEGATIVE mg/dL (NEGATIVE) Urine Occult Blood LARGE (NEGATIVE) H Urine Nitrate NEGATIVE (NEGATIVE) Urine Bilirubin NEGATIVE mg/dL (NEGATIVE) Urine Urobilinogen 0.2 mg/dL (0.2-1.0) Urine Leukocyte Esterase 250 Bruna/uL (NEGATIVE) H Urine RBC TNTC /HPF (0-1) H Urine WBC 26-50 /HPF (0-1) H Urine Squamous Epithelial Cells FEW /HPF (0-2) Urine Bacteria FEW /HPF (None Seen) Labs Reviewed?: Yes ED Course ED Course Orders Procedure Category Date Status Time Pt And Ptt LAB 05/21/24 Complete 12:06 Cbc With Differential LAB 05/21/24 Complete 12:06 Urinalysis Profile LAB 05/21/24 Complete 12:06 0.9%Nacl 1000ml (Ns PHA 05/21/24 Complete 1000ml) 12:30 Basic Metabolic Panel LAB 05/21/24 Complete 12:06 Morphine 2mg Syg PHA 05/21/24 Complete (Morphine 2mg Syg) 12:30 Ondansetron 4mg Inj PHA 05/21/24 Complete (Zofran 4mg Inj) 12:30 Culture Urine NIMESH 05/21/24 In Process 12:52 Ceftriaxone 1g Vial PHA 05/21/24 Complete (Rocephine 1g Inj) 13:30 Ct Abdomen/Pelvis W/O CT 05/21/24 Resulted Contrast 13:09 Potassium Bicarb/Cit PHA 05/21/24 Complete Ac 25meq (K-Lyte Ta 15:00 Current Medications Medications (Trade) Dose Ordered Sig/Manuel Route PRN Reason Start Time Stop Time Status Last Admin Dose Admin Ceftriaxone Sodium (ROCEphine 1G INJ) 1 gm ONCE ONCE IVPB 05/21/24 13:30 05/21/24 13:31 DC 05/21/24 13:31 Morphine Sulfate (morPHINE 2MG SYG) 2 mg ONCE ONCE IVP 05/21/24 12:30 05/21/24 12:31 DC 05/21/24 12:38 Ondansetron HCl (zoFRAN 4MG INJ) 4 mg ONCE ONCE IVP 05/21/24 12:30 05/21/24 12:31 DC 05/21/24 12:37 Potassium Bicarbonate (K-Lyte Tablet Eff 25 Meq Tablet.eff) 25 meq ONCE ONCE PO 05/21/24 15:00 05/21/24 15:01 DC 05/21/24 14:54 Sodium Chloride 1,000 ml @ 0 mls/hr ONCE ONCE IV 05/21/24 12:30 05/21/24 12:31 DC 05/21/24 12:38 Vital Signs Date Time Temp Pulse Resp B/P (MAP) Pulse Ox O2 Delivery O2 Flow Rate FiO2 05/21/24 14:12 98.1 78 14 142/75 98 Room Air* 0 21 05/21/24 12:58 98.1 72 12 155/88 98 Room Air* 0 21 05/21/24 12:43 98.8 74 12 182/90 98 Room Air* 0 21 05/21/24 12:01 98.4 82 16 159/98 98 Room Air* 0 21 05/21/24 12:01 98.4 82 16 159/98 98 0 1455, patient is hemodynamically stable feels better after fluids and antibiotics. She will be discharged home with a acute cystitis with hematuria and a left renal stone. Patient also states she has been having diarrhea that has been refractory to Imodium I agreed to provide her with Lomotil she would also like to have referral to a supervisor litharge. 1503/spoke with Dr. Pinto, neurologist he was given the background of the patient's visit to the emergency room in her history of dementia with seizures. He will perform an SSC and give us his recommendations. Medical Decision Making MDM MDM: Differential diagnosis: Nephrolithiasis/hydroureter/pyelonephritis/acute kidney injury/dehydration/electrolyte imbalance Rationale: Tests considered and ordered secondary to shared decision making include: Radiology/labs Previous outside records reviewed: Old ER visits. Risk of complication and/or morbidity or mortality of patient management: Mild Medications-Per medication reconciliation Need for hospitalization: Patient does not meet criteria for hospitalization. No Need for emergency major/minor surgery: No There are no social concerns with this patient. Prescription drug management Augmentin/Pyridium Prescriptions will include symptomatic care Patient's prior external medical records from other ER visits were reviewed by me as indicated. Prior testing and results from previous visits were reviewed. Prior tests were taken into account with medical decision making and resource utilization, independent historian/historians were used to obtain complete medical history. I independently interpreted the test that were performed, results were reviewed by me and considered findings on radiology if ordered. Medical management and examination interpretation discussions were had by me with other qualified healthcare professionals as indicated for the patient's care. DX & DISP Disposition: Discharge Departure Impression: Primary Impression: Acute cystitis with hematuria Additional Impressions: Kidney stone on left side, Hypokalemia, Dehydration Condition: Stable Scripts Phenazopyridine HCl (Pyridium) 200 Mg Tab 200 MG PO TIDPC for 3 Days, #9 TAB TAKE WITH FOOD TO PREVENT STOMACH UPSET. Prov: RUPERT FONSECA SLIPCOVER CUTTER 05/21/24 Amoxicillin/Potassium Clav (Amox Tr-K Clv 875-125 mg Tab) 875 Mg-125 Mg Tablet 1 EACH PO BID for 7 Days, #14 TAB 0 Refills Prov: RUPERT FONSECA NP 05/21/24 Diphenoxylate HCl/Atropine (Lomotil Tablet) 2.5 Mg-0.025 Mg Tablet 1 TAB PO QID for 5 Days, #20 TAB 0 Refills Prov: RUPERT FONSECA NP 05/21/24 Additional Instructions: Follow-up with primary care provider in 1 to 2 days. Take medications as directed here in the emergency room. Okay to continue home medications unless otherwise discussed during your visit in the emergency room today. Return to your nearest emergency room if symptoms worsen or if there is no improvement. Call 911 if you need immediate assistance. Take Tylenol or Motrin [id number] as needed and if no contraindications are present. Increase oral hydration. A wound culture or urine culture was ordered here in the emergency room department please follow-up with primary care provider and advise them to get repeat ports from our facility. If you had any Farooq wrap/splints that were applied here, please do not remove them until you see your primary care or specialty. Take antibiotics as directed until gone. Take Pyridium as directed for bladder spasm, be mindful that it we will call your urine to be orange red. Increase your water intake. Referrals: NONE (PCP) TAMAR COFFEY MD Time of Disposition: 14:57 I have reviewed the case, and I agree with, Diagnosis and Plan RUPERT FONSECA NP May 21, 2024 12:09
[2024-05-21] MEDS: ondanSETRON 4MG INJ IVP ONE (12:37)
[2024-05-21] MEDS: morPHINE 2 MG SYG IVP ONE (12:38)
[2024-05-21] MEDS: 0.9%NACL 1000ML 1,000 ML IV ONE (12:38)
[2024-05-21 12:48] LABS: BASOPHILS # (AUTO) 0.04 K/uL (0.00-0.20); BASOPHILS % (AUTO) 0.6 % (0.0-5.0); EOSINOPHILS # (AUTO) 0.09 K/uL (0.00-0.70); EOSINOPHILS % (AUTO) 1.4 % (0.0-8.0); IMMATURE GRANULOCYTE ABSOLUTE 0.04 K/uL (0-1); LYMPHOCYTES # (AUTO) 2.1 K/uL (1.0-4.8); LYMPHOCYTES % (AUTO) 32.3 % (21.0-51.0); MEAN CORPUSCULAR HEMOGLOBIN 30.6 pg (27.0-33.0); MEAN CORPUSCULAR HGB CONC 31.9 g/dL (32.0-36.0); MEAN CORPUSCULAR VOLUME 95.9 fL (79-99); MONOCYTES # (AUTO) 0.6 K/uL (0.1-1.0); MONOCYTES % (AUTO) 8.4 % (3.0-13.0); NEUTROPHILS # (AUTO) 3.7 K/uL (1.8-7.7); NEUTROPHILS % (AUTO) 56.7 % (40.0-77.0); PLATELET COUNT (AUTO) 322 K/uL (130-400); RED BLOOD CELL COUNT(AUTO) 4.38 MIL/uL (4.00-5.50); RED CELL DISTRIBUTION WIDTH 14.3 % (11.0-15.5); WHITE BLOOD COUNT (AUTO) 6.5 K/uL (4.8-10.8)
[2024-05-21 12:49] LABS: BILIRUBIN,URINE NEGATIVE (NEGATIVE); COLOR,URINE LIGHT-YELLOW (YELLOW); GLUCOSE, URINE (UA) NEGATIVE (NEGATIVE); KETONES,URINE NEGATIVE (NEGATIVE); LEUKOCYTE ESTERASE ,URINE 250 Leu/uL (NEGATIVE); NITRATE,URINE NEGATIVE (NEGATIVE); OCCULT BLOOD,URINE LARGE (NEGATIVE); PH,URINE 6.5 (5.0-8.0); PROTEIN,URINE NEGATIVE (NEGATIVE); UROBILINOGEN,URINE 0.2 mg/dL (0.2-1.0)
[2024-05-21 12:51] LABS: ADD UA MICROSCOPIC YES; APPEARANCE,URINE HAZY (CLEAR)
[2024-05-21 12:53] LABS: CREATININE 0.9 mg/dL (0.5-1.0); POTASSIUM 3.4 mmol/L (3.5-5.1)
[2024-05-21 12:54] LABS: BACTERIA,URINE FEW /HPF (None Seen); MUCUS,URINE RARE LPF (None Seen); RBC,URINE TNTC /HPF (0-1); SQUAMOUS EPITHELIAL CELL,UR FEW /HPF (0-2); WBC,URINE 26-50 /HPF (0-1)
[2024-05-21 13:02] LABS: INR <= 0.93 (0.85-1.15); PROTHROMBIN TIME 10.1 SEC (9.6-11.6)
[2024-05-21 13:04] LABS: PARTIAL THROMBOPLASTIN TIME 23.6 SEC (26.3-35.5)
[2024-05-21] MEDS: cefTRIAXone 1G VIAL IVPB ONE (13:31)
[2024-05-21 14:12] VITALS: TEMP 98.1
--- NOTE | 2024-05-21 14:19 | HMCIMG ---
CT ABDOMEN/PELVIS W/O CONTRAST REASON: LEFT FLANK PAIN THAT RADIATES TO LEFT LOWER QUADRANT COMPARISON: 07/19/2016 FINDINGS: Lung bases are clear. There is some air in the biliary tree probably from previous sphincterotomy.. There are multiple bilateral renal cysts. Largest is lower pole right measuring 6.4 cm. There is a nonobstructing 1.1 cm stone in a middle pole calyx left kidney. There is no mass or hydronephrosis.. Spleen and pancreas appear unremarkable. There has been a previous cholecystectomy. There are mildly prominent fluid-filled loops of small bowel. These are present throughout, without transition zone. Findings are nonspecific, gastroenteritis or ileus can cause this appearance. Colon does not appear distended. This includes normal appearance of the appendix There is no evidence of free fluid or intraperitoneal air. There are no focal fluid collections. Aorta and retroperitoneum appear normal. There is a Tima vena cava filter in place. There is no retroperitoneal or pelvic lymphadenopathy. Pelvic soft tissues appear unremarkable. The anterior abdominal wall is intact. There is a left total hip joint prosthesis. There is a 9 mm anterior subluxation of L4 on L5 bones appear otherwise unremarkable. IMPRESSION: 1. Diffusely prominent fluid-filled small bowel loops present throughout, no transition zone, gastroenteritis or mild ileus most likely. 2. Absent gallbladder, there are some air in the biliary tree presumably from previous sphincterotomy. 3. Multiple bilateral renal cysts, there is 1.1 cm nonobstructing stone in a middle pole calyx on the left, there is no evidence of mass or hydronephrosis. CT was performed with one or more following dose reduction techniques: automated exposure control, adjustment of the mA and kv according to patient's size, or use of a iterative reconstruction technique.
[2024-05-21] MEDS: PoTASSium BIcarbonate/CIT AC 25 MEQ TABLET.EFF PO ONE (14:54)
[2024-05-21] MEDS ORDERED: AMOX1TAB16 PO (14:58)
[2024-05-21] MEDS ORDERED: DIPH1TAB PO (14:58)
[2024-05-21] MEDS ORDERED: PHEN-847 PO (14:58)
[2024-05-21 15:04] VITALS: BP 154/78; PULSE 72; RESP 16; O2SAT 98
== END 2024-05-21 15:14 | disposition home or self-care (01) ==
LOC: EDH 12:00
DX: N30.01 Acute cystitis with hematuria (principal); N20.0 Calculus of kidney; E87.6 Hypokalemia; E86.0 Dehydration; I10 Essential (primary) hypertension; Z79.890 Hormone replacement therapy; Z79.899 Other long term (current) drug therapy
CPT/HCPCS: 99285; 74176; 96365; 96375; 96366; 96361; 80048; 85025; 85610; 85730; 87086; 81001; 36415; J2270; J7030; J0696; J2405

== ENCOUNTER 2024-06-10 16:57 | Emergency (ER) | payer MEDICARE ==
[~2024-06-10] VITALS: Ht 170.2 cm; Wt 56.7 kg
[~2024-06-10 16:57] MED LIST changes: +AMOX1TAB16 PO; +DIPH1TAB PO; +PHEN-847 PO
[2024-06-10] MEDS: 0.9%NACL 1000ML 1,000 ML IV ONE (18:30)
[2024-06-10] MEDS ORDERED: 0.9%NACL 1000ML 1,848 ML IV ONE (18:30)
--- NOTE | 2024-06-10 18:37 | ERN ---
ED Note History of Present Illness Stated Complaint: WEAKNESS,DEHYDRATED Chief Complaint: Weakness Time Seen by MD: 18:05 Time Seen by Midlevel: 18:06 Dictation: 73-year-old female presents to the emergency department with her for evaluation due to report of concern for dehydration. The patient states that she has had some generalized weakness, fatigue, malaise and diarrhea that started 2 days ago. In the past, she reports having had episodes of dehydration associated with this symptoms. There is no report of any fever associated with this. However she does report having some chills. As per the patient, she has not been in contact with anybody with similar symptoms. Upon initial evaluation, the patient presents mildly uncomfortable looking. Allergies: Coded Allergies: pregabalin (Unverified Allergy, Severe, 04/17/23) severe itching all over body atorvastatin (Verified Allergy, Unknown, 07/10/16) Emergency Care [facility]ER: None Home Meds Active Scripts Ondansetron (Ondansetron Odt) 4 Mg Tab.rapdis, 4 MG PO Q6HPRN PRN for nausea, #16 TAB 0 Refills Prov:CHEMA JIMENES 06/11/24 Phenazopyridine HCl (Pyridium) 200 Mg Tab, 200 MG PO TIDPC for 3 Days, #9 TAB TAKE WITH FOOD TO PREVENT STOMACH UPSET. Prov:RUPERT FONSECA NP 05/21/24 Amoxicillin/Potassium Clav (Amox Tr-K Clv 875-125 mg Tab) 875 Mg-125 Mg Tablet, 1 EACH PO BID for 7 Days, #14 TAB 0 Refills Prov:RUPERT FONSECA NP 05/21/24 Diphenoxylate HCl/Atropine (Lomotil Tablet) 2.5 Mg-0.025 Mg Tablet, 1 TAB PO QID for 5 Days, #20 TAB 0 Refills Prov:RUPERT FONSECA NP 05/21/24 Potassium Chloride (Potassium Chloride) 20 Meq Tab.er.prt, 20 MEQ PO DAILY for 3 Days, #3 MEQ Prov:SHAMIKA HERNANDEZ NP 06/23/23 Magnesium Oxide (Magnesium Oxide) 400 Mg Tablet, 400 MG PO DAILY for 3 Days, #3 TAB Prov:SHAMIKA HERNANDEZ NP 06/23/23 Levofloxacin (Levofloxacin) 500 Mg Tablet, 500 MG PO DAILY for 5 Days, #5 TAB Prov:SHAMIKA HERNANDEZ LOCKSTITCH SLEEVE MAKER 06/23/23 Ondansetron (Ondansetron Odt) 4 Mg Tab.rapdis, 4 MG PO Q4H PRN for NAUSEA, #20 TAB Prov:ROSS CLEANING CANDY SPREADER HELPER 06/04/23 Amlodipine Besylate (Amlodipine Besylate) 5 Mg Tablet, 5 MG PO DAILY, #30 TAB 0 Refills Prov:ELISE MONTEIRO AGPCNP 04/19/23 Reported Medications Ferrous Sulfate (Ferrous Sulfate) 325 Mg Tablet, 325 MG PO DAILY, TAB 06/18/22 Hyoscyamine Sulfate (Hyoscyamine Sulfate) 0.125 Mg Tablet, 0.125 MG PO Q8H for DIARRHEA, TAB 06/18/22 Cholecalciferol (Vitamin D3) (Vitamin D3) 125 Mcg Tablet, 125 MCG PO DAILY, TAB 06/18/22 Trazodone HCl (Trazodone HCl) 50 Mg Tablet, 50 MG PO HS, TAB 06/18/22 Levothyroxine Sodium (Levothyroxine Sodium) 150 Mcg Tablet, 150 MCG PO DAILY, TAB 07/10/16 Past Medical History Past Medical History: Hypertension, Other Additional Past Medical Hx: GENETIC KIDNEY DISEASE Surgical History: Other Surgical History Other: SHOULDER REPLACEMENT, KNEE Family History: Negative Social History: Negative, Lives with family History: Not Applicable RN Note Reviewed/Agreed w/PFSH: Yes Review of System Dictation Constitutional: Chills, malaise Abdomen/GI: Diarrhea Initial Vital Sign VS Vital Signs Date Time Temp Pulse Resp B/P (MAP) Pulse Ox O2 Delivery O2 Flow Rate FiO2 06/10/24 17:57 99.3 121 20 152/91 Room Air 06/11/24 02:36 99 0 21 Physical Exam Dictation General: awake, alert, NAD Head/Face: Normocephalic, atraumatic Eyes: PERRL, EOMI ENT: Oral mucosa are dry Neck: Trachea midline, supple Cardiovascular: RRR, no edema Respiratory: Symmetrical, non-labored Abdomen: Soft, non-tender, non-distended, no guarding. Skin: Warm, dry, good turgor, no rash MS/Extremity: Pulses equal, no cyanosis, neurovascular intact, FROM Neuro: COAx4, GCS 15, steady gait, Psych: Normal behavior, mood, and affect normal Results (Laboratory/Radiology) Laboratory/Radiology Laboratory Tests Test 06/10/24 19:30 06/10/24 21:00 06/11/24 01:44 White Blood Count 21.5 K/uL (4.8-10.8) H 17.1 K/uL (4.8-10.8) H Red Blood Count 5.09 MIL/uL (4.00-5.50) 4.51 MIL/uL (4.00-5.50) Hemoglobin 15.7 g/dL (12.0-16.0) 13.8 g/dL (12.0-16.0) Hematocrit 49.0 % (36-48) H 43.4 % (36-48) Mean Corpuscular Volume 96.3 fL (79-99) 96.2 fL (79-99) Mean Corpuscular Hemoglobin 30.8 pg (27.0-33.0) 30.6 pg (27.0-33.0) Mean Corpuscular Hemoglobin Concent 32.0 g/dL (32.0-36.0) 31.8 g/dL (32.0-36.0) L Red Cell Distribution Width 14.4 % (11.0-15.5) 14.4 % (11.0-15.5) Platelet Count 225 K/uL (130-400) 202 K/uL (130-400) Mean Platelet Volume 9.9 fL (7.5-10.5) 9.8 fL (7.5-10.5) Immature Granulocyte % (Auto) 1.3 % (0-1) H 1.0 % (0-1) Neutrophils (%) (Auto) 96.9 % (40.0-77.0) H 93.3 % (40.0-77.0) H Lymphocytes (%) (Auto) 1.0 % (21.0-51.0) L 3.0 % (21.0-51.0) L Monocytes (%) (Auto) 0.6 % (3.0-13.0) L 2.6 % (3.0-13.0) L Eosinophils (%) (Auto) 0.0 % (0.0-8.0) 0.0 % (0.0-8.0) Basophils (%) (Auto) 0.2 % (0.0-5.0) 0.1 % (0.0-5.0) Neutrophils # (Auto) 20.9 K/uL (1.8-7.7) H 15.9 K/uL (1.8-7.7) H Lymphocytes # (Auto) 0.2 K/uL (1.0-4.8) L 0.5 K/uL (1.0-4.8) L Monocytes # (Auto) 0.1 K/uL (0.1-1.0) 0.5 K/uL (0.1-1.0) Eosinophils # (Auto) 0.00 K/uL (0.00-0.70) 0.00 K/uL (0.00-0.70) Basophils # (Auto) 0.04 K/uL (0.00-0.20) 0.02 K/uL (0.00-0.20) Absolute Immature Granulocyte (auto 0.27 K/uL (0-1) 0.17 K/uL (0-1) Nucleated Red Blood Cells 0.0 % (0.0-0.19) 0.0 % (0.0-0.19) White Cell Morphology Comment See comments Sodium Level 137 mmol/L (136-145) 138 mmol/L (136-145) Potassium Level 6.1 mmol/L (3.5-5.1) *H 5.8 mmol/L (3.5-5.1) H 5.4 mmol/L (3.5-5.1) H Chloride Level 99 mmol/L (101-111) L 103 mmol/L (101-111) Carbon Dioxide Level 30 mmol/L (21-32) 29 mmol/L (21-32) Blood Urea Nitrogen 31 mg/dL (7-18) H 33 mg/dL (7-18) H Creatinine 1.8 mg/dL (0.5-1.0) H 1.6 mg/dL (0.5-1.0) H Glomerular Filtration Rate Calc 30 mL/min (>90) 34 mL/min (>90) Random Glucose 163 mg/dL (70-105) H 120 mg/dL (70-105) H Lactic Acid Level 1.4 mmol/L (0.8-2.5) Total Calcium 11.8 mg/dL (8.5-10.1) H 9.8 mg/dL (8.5-10.1) Total Bilirubin 0.6 mg/dL (0.2-1.0) Aspartate Amino Transf (AST/SGOT) 27 U/L (10-37) Alanine Aminotransferase (ALT/SGPT) 25 U/L (12-78) Alkaline Phosphatase 94 U/L (50-136) Total Protein 7.9 g/dL (6.0-8.3) Albumin 3.9 g/dL (3.5-5.0) Labs Reviewed?: Yes ED Course ED Course Orders Procedure Category Date Status Time Cbc With Differential LAB 06/10/24 Complete 18:15 Comprehensive LAB 06/10/24 Complete Metabolic Panel 18:15 Lactic Acid LAB 06/10/24 Complete 18:15 Saline Lock Iv CPOE 06/10/24 Transmitted 18:18 0.9%Nacl 1000ml (Ns PHA 06/10/24 Complete 1000ml) 18:30 0.9%Nacl 1000ml (Ns PHA 06/10/24 Complete 1000ml) 18:30 Potassium LAB 06/10/24 Complete 20:09 Ct Abdomen/Pelvis W/O CT 06/10/24 Resulted Contrast 20:51 Chest 1vw RAD 06/10/24 Resulted 20:51 12 Lead Ekg Tracing- EKG 06/10/24 Complete Technical 21:59 0.9%Nacl 1000ml (Ns PHA 06/10/24 Complete 1000ml) 23:54 Cbc With Differential LAB 06/11/24 Complete 01:36 Basic Metabolic Panel LAB 06/11/24 Complete 01:36 Current Medications Medications (Trade) Dose Ordered Sig/Manuel Route PRN Reason Start Time Stop Time Status Last Admin Dose Admin Sodium Chloride 1,000 ml @ 0 mls/hr ONCE ONCE IV 06/10/24 18:30 06/10/24 18:31 DC 06/10/24 18:30 Sodium Chloride 1,848 ml @ 616 mls/hr ONCE ONCE IV 06/10/24 18:30 06/10/24 18:21 DC Sodium Chloride 2,000 ml @ As Directed STK-MED ONCE IV 06/10/24 23:54 06/10/24 23:54 DC Vital Signs Date Time Temp Pulse Resp B/P (MAP) Pulse Ox O2 Delivery O2 Flow Rate FiO2 06/11/24 02:36 99.0 92 16 142/88 99 Room Air* 0 21 06/10/24 17:57 99.3 121 20 152/91 Room Air Medical Decision Making MDM MDM: Differential diagnosis: Acute dehydration, viral gastroenteritis, electrolyte imbalance. Rationale: Tests considered and ordered secondary to shared decision making include: Previous outside records reviewed: Old ER visits. Risk of complication and/or morbidity or mortality of patient management: None Medications-Per medication reconciliation Need for hospitalization: Patient does not meet criteria for hospitalization. Need for emergency major/minor surgery: No There are no social concerns with this patient. Prescription drug management Prescriptions will include symptomatic care Patient's prior external medical records from other ER visits were reviewed by me as indicated. Prior testing and results from previous visits were reviewed. Prior tests were taken into account with medical decision making and resource utilization, independent historian/historians were used to obtain complete medical history. I independently interpreted the test that were performed, results were reviewed by me and considered findings on radiology if ordered. Medical management and examination interpretation discussions were had by me with other qualified healthcare professionals as indicated for the patient's care. DX & DISP Disposition: Discharge Departure Impression: Primary Impression: Acute gastroenteritis Additional Impression: Acute dehydration Condition: Stable Scripts Ondansetron (Ondansetron Odt) 4 Mg Tab.rapdis 4 MG PO Q6HPRN PRN for nausea, #16 TAB 0 Refills Prov: CHEMA JIMENES 06/11/24 Referrals: SELF,REFERRAL (PCP) CHEMA JIMENES Jun 10, 2024 18:37 JOSHUA VARGAS DO Jun 11, 2024 07:04
[2024-06-10 19:43] LABS: BASOPHILS # (AUTO) 0.04 K/uL (0.00-0.20); BASOPHILS % (AUTO) 0.2 % (0.0-5.0); IMMATURE GRANULOCYTE ABSOLUTE 0.27 K/uL (0-1); LYMPHOCYTES # (AUTO) 0.2 K/uL (1.0-4.8); MEAN CORPUSCULAR HEMOGLOBIN 30.8 pg (27.0-33.0); MEAN CORPUSCULAR VOLUME 96.3 fL (79-99); MONOCYTES # (AUTO) 0.1 K/uL (0.1-1.0); MONOCYTES % (AUTO) 0.6 % (3.0-13.0); NEUTROPHILS # (AUTO) 20.9 K/uL (1.8-7.7); NEUTROPHILS % (AUTO) 96.9 % (40.0-77.0); PLATELET COUNT (AUTO) 225 K/uL (130-400); RED BLOOD CELL COUNT(AUTO) 5.09 MIL/uL (4.00-5.50); RED CELL DISTRIBUTION WIDTH 14.4 % (11.0-15.5); WHITE BLOOD COUNT (AUTO) 21.5 K/uL (4.8-10.8)
[2024-06-10 19:59] LABS: ALBUMIN 3.9 g/dL (3.5-5.0); BILIRUBIN,TOTAL 0.6 mg/dL (0.2-1.0); CREATININE 1.8 mg/dL (0.5-1.0); TOTAL PROTEIN, SERUM 7.9 g/dL (6.0-8.3)
[2024-06-10 20:05] LABS: POTASSIUM 6.1 mmol/L (3.5-5.1)
--- NOTE | 2024-06-10 20:09 | NUR ---
PER RATTLE LEAK AND SQUEAK REPAIRER, RECOLLECT POTASSIUM
--- NOTE | 2024-06-10 21:29 | HMCIMG ---
Exam Type: CHEST 1VW Clinical Information: Cough Comparison: None Findings: The lungs are clear of infiltrates. The heart is normal in size. The bony and soft tissue structures of the chest are unremarkable. Impression: Clear lungs.
--- NOTE | 2024-06-10 21:29 | HMCIMG ---
Exam Type: CT ABDOMEN/PELVIS W/O CONTRAST Clinical Information: Pain Comparison: None CT Dose Index (CTDI): 10.20 mGy Dose Length Product (DLP): 530.00 total mGy-cm PROTOCOL: Routine noncontrast helical scanning of the abdomen and pelvis was performed at 5mm collimation. Findings: Bilateral tiny, 1 to 2 mm renal calculi are seen. There is no hydronephrosis. No worrisome renal masses are seen. Bilateral simple renal cysts are seen. The lung bases are clear. The stomach is unremarkable. It shows no wall thickening. No gross ulceration is seen. It is not overly distended. There are no surrounding inflammatory changes. No wall lesions are identified to suggest cancer. The spleen is unremarkable. It is not enlarged. The pancreas shows normal anatomy. It is not fatty replaced. It shows no lesions. The pancreatic duct is not dilated. The gallbladder is surgically absent. There is resultant postoperative pneumobilia is expected. Inferior vena cava filter is noted in place. The adrenal glands are unremarkable. There is no enlargement. No lesions are noted. The liver is unremarkable. It shows no focal masses. The appendix is unremarkable. It shows no evidence of inflammation. No appendicolith is seen. The small bowel is unremarkable. There is no evidence of dilatation to suggest obstruction. No evidence of adynamic ileus is seen. There is no small bowel wall thickening to suggest enteritis. The colon is unremarkable. The urinary bladder is unremarkable. There is no wall thickening to suggest tumor or inflammation. There are no intraluminal calculi. There are no diverticula. There is no evidence of chronic bladder outlet obstruction. There is no evidence of urinary bladder distention to suggest urinary retention. The other pelvic structures are unremarkable. The bony and vascular structures are unremarkable for the patient's age. IMPRESSION: No acute pathology. Chronic changes as noted. This study was performed using dose reduction techniques to include automated exposure control and/or adjustment of the mA and/or kV according to patient size.
[2024-06-11] MEDS: 0.9%NACL 1000ML 2,000 ML IV ONE (01:17)
[2024-06-11 01:54] LABS: BASOPHILS # (AUTO) 0.02 K/uL (0.00-0.20); BASOPHILS % (AUTO) 0.1 % (0.0-5.0); HEMATOCRIT 43.4 % (36-48); IMMATURE GRANULOCYTE ABSOLUTE 0.17 K/uL (0-1); LYMPHOCYTES # (AUTO) 0.5 K/uL (1.0-4.8); MEAN CORPUSCULAR HEMOGLOBIN 30.6 pg (27.0-33.0); MEAN CORPUSCULAR HGB CONC 31.8 g/dL (32.0-36.0); MEAN CORPUSCULAR VOLUME 96.2 fL (79-99); MONOCYTES # (AUTO) 0.5 K/uL (0.1-1.0); MONOCYTES % (AUTO) 2.6 % (3.0-13.0); NEUTROPHILS # (AUTO) 15.9 K/uL (1.8-7.7); NEUTROPHILS % (AUTO) 93.3 % (40.0-77.0); PLATELET COUNT (AUTO) 202 K/uL (130-400); RED BLOOD CELL COUNT(AUTO) 4.51 MIL/uL (4.00-5.50); RED CELL DISTRIBUTION WIDTH 14.4 % (11.0-15.5); WHITE BLOOD COUNT (AUTO) 17.1 K/uL (4.8-10.8)
[2024-06-11 02:02] LABS: CREATININE 1.6 mg/dL (0.5-1.0); POTASSIUM 5.4 mmol/L (3.5-5.1)
[2024-06-11] MEDS ORDERED: ONDA-243 PO (02:23)
[2024-06-11 02:36] VITALS: BP 142/88; PULSE 92; RESP 16; TEMP 99; O2SAT 99
--- NOTE | 2024-06-11 07:02 | EKG ---
[facility] Test Date: 2024-06-10 Test Time: 22:03:16 Pat Name: SALVATORE DOWNING Department: [facility] Room: Gender: F Medical Radiation Therapist: [id number] : 1950 Requested By: CHEMA JIMENES Order Number: [id number] Reading MD: Michael Liriano Measurements Intervals [place] Rate: 110 P: 40 [place]: 143 QRS: -37 QRSD: 101 T: 80 QT: 317 QTc: 430 Interpretive Statements Sinus tachycardia Probable left atrial enlargement Left axis deviation Anterior infarct, old ST elevation, consider inferior injury Compared to ECG 06/20/2023 10:43:05 Left-axis deviation now present Myocardial infarct finding now present ST (T wave) deviation now present Electronically Signed On 06-12-2024 17:36:18 ADMITTING COORDINATOR by Michael Liriano Please click the below link to view image of tracing.
[2024-06-13] MEDS ORDERED: LEVO125 PO (09:57)
[2024-06-13] MEDS ORDERED: FENO145T26 PO (10:02)
[2024-06-13] MEDS ORDERED: OMEP40CA21 PO (10:02)
[2024-06-13] MEDS ORDERED: FERR-82 PO (10:02)
[2024-06-13] MEDS ORDERED: DULO30CA52 PO (10:02)
== END 2024-06-11 02:03 | disposition home or self-care (01) ==
LOC: EDH 16:57
DX: K52.9 Noninfective gastroenteritis and colitis, unspecified (principal); E86.0 Dehydration; I10 Essential (primary) hypertension; Z79.890 Hormone replacement therapy; Z79.899 Other long term (current) drug therapy
CPT/HCPCS: 99285; 96361; 96360; J7030; 36415; 71045; 74176; 80048; 80053; 83605; 84132; 85025; 93005; 99284